=== PATIENT | female | born 1950 | race Caucasian/White ===

== ENCOUNTER 2022-06-07 12:22 | Observation (INO) | payer MEDICARE ==
[~2022-06-07] VITALS: Ht 162.6 cm; Wt 72.0 kg
[2022-06-07] VITALS (22 sets, daily range): BP systolic 117–187; BP diastolic 63–112
[2022-06-07 13:13] LABS: HEMATOCRIT 40.8 % (37.0-47.0); HEMOGLOBIN 13.4 g/dl (12.0-16.0); IMMATURE GRANULOCYTES 0.2 % (0.0-5.0); MEAN CELL VOLUME 90.3 fL CALC (80.0-100.0); MEAN CORPUSCULAR HGB 29.6 pG CALC (26.0-32.0); MEAN CORPUSCULAR HGB CONC 32.8 g/dL CAL (32.0-36.0); NEUT# 2.89 thou/uL (2.00-7.15); RED BLOOD COUNT 4.52 mill/uL (4.20-5.60); RED CELL DISTRI WIDTH 12.8 % (11.5-15.5)
[2022-06-07 13:47] LABS: ALBUMIN 4.3 g/dL (3.2-5.0); ALKALINE PHOSPHATASE 78 u/l (38-126); ANION GAP 11 (6-22 (CALC)); BILIRUBIN, TOTAL 0.5 mg/dL (0.0-1.4); BUN 11 mg/dL (8-23); BUN/CREATININE RATIO 13 (12-20 (CALC)); CARBON DIOXIDE 26 mmol/l (22-30); CHLORIDE 106 mmol/l (95-108); CREATININE 0.9 mg/dL (0.5-1.0); GFR FOR AFR.AMER. > 60 ML/MIN (>=60 (CALC)); GFR OTHER RACES > 60 ML/MIN (>=60 (CALC)); POTASSIUM 3.9 mmol/l (3.5-5.1); SGOT/AST 27 u/l (9-36); SODIUM 139 mmol/l (137-146); TOTAL PROTEIN 6.9 g/dL (6.3-8.2)
[2022-06-07] MEDS ORDERED: ALPRAZOLAM0.25 MG PO (14:15)
[2022-06-07] MEDS ORDERED: ELIQUIS5 MG PO (14:15)
[2022-06-07 14:16] LABS: TSH, 3RD GENERATION 2.42 uIU/mL (0.47 - 4.68)
[2022-06-07] MEDS ORDERED: METROCREAM0.75 % EX (14:16)
[2022-06-07] MEDS ORDERED: CHOLECALCIF (14:16)
[2022-06-08] VITALS (9 sets, daily range): BP systolic 101–147; BP diastolic 55–82
[2022-06-08 05:53] LABS: HEMATOCRIT 37.3 % (37.0-47.0); HEMOGLOBIN 12.2 g/dl (12.0-16.0); MEAN CORPUSCULAR HGB 29.8 pG CALC (26.0-32.0); MEAN CORPUSCULAR HGB CONC 32.7 g/dL CAL (32.0-36.0); RED BLOOD COUNT 4.1 mill/uL (4.20-5.60); RED CELL DISTRI WIDTH 12.9 % (11.5-15.5)
[2022-06-08 06:07] LABS: ANION GAP 5 (6-22 (CALC)); BUN 12 mg/dL (8-23); BUN/CREATININE RATIO 14 (12-20 (CALC)); CARBON DIOXIDE 31 mmol/l (22-30); CHLORIDE 107 mmol/l (95-108); CREATININE 0.9 mg/dL (0.5-1.0); GFR FOR AFR.AMER. > 60 ML/MIN (>=60 (CALC)); GFR OTHER RACES > 60 ML/MIN (>=60 (CALC)); POTASSIUM 4.1 mmol/l (3.5-5.1); SODIUM 140 mmol/l (137-146)
== END 2022-06-08 14:45 | disposition home or self-care (01) ==
LOC: ED 12:22 → ED-I 13:58 → ED 13:58 → ED-I 15:30 → ICU 16:07 → ED 16:07 → ICU 06-08 14:45
PROVIDERS: Family Medicine; ADMIT Internal Medicine; ATTEND Internal Medicine
DX: I48.19 Other persistent atrial fibrillation (principal); I10 Essential (primary) hypertension; I42.8 Other cardiomyopathies; I49.1 Atrial premature depolarization; I49.3 Ventricular premature depolarization; Z79.01 Long term (current) use of anticoagulants